=== PATIENT | female | born 1955 | race Caucasian/White ===

== ENCOUNTER → 2017-06-15 | Outpatient (CLI) | payer MEDICARE ==
[~2017-06-15] MED LIST: CATHETER FLUSH 10 ML SYR IV PRN; IOHEXOL 350 MG/ML 150 ML (OMNIPAQUE 350) VIAL IV ONE; NS 250 ML (IVPB) BAG IV ONE
[2017-06-15 11:01] LABS: BUN/CREATININE RATIO 16; CREATININE SERUM 0.85 MG/DL (0.60-1.30); GFR ESTIMATED > 60
--- NOTE | 2017-06-15 11:41 | Diagnostic Imaging Report ---
PROCEDURE: CT angiography of the chest with contrast. TECHNIQUE: Multiple contiguous axial images were obtained through the chest after uneventful bolus administration of intravenous contrast. Reconstructed CTA MIP acquisitions were also performed. INDICATION: Sleep apnea and obesity with family history of aneurysm. FINDINGS: There is good opacification of pulmonary arteries without intraluminal filling defect identified. Thoracic aorta has a normal appearance. There is no evidence of aneurysm, aortic stenosis or intimal abnormality. There is a normal three-vessel branching pattern arising from the aortic arch and the visualized renal arteries and superior mesenteric artery are unremarkable as is the celiac trunk. Lungs are clear, bilaterally. There is no significant pleural or pericardial fluid. IMPRESSION: Unremarkable CTA of the chest apart from mild thoracic spondylosis. Dictated by: Dictated on workstation # [id number]
== END ==
LOC: RAD 10:23
PROVIDERS: ATTEND Internal Medicine Cardiovascular Disease
DX: I67.1 Cerebral aneurysm, nonruptured (principal); M47.814 Spondylosis without myelopathy or radiculopathy, thoracic region; G47.30 Sleep apnea, unspecified; I10 Essential (primary) hypertension; E66.01 Morbid (severe) obesity due to excess calories; Z82.49 Family history of ischemic heart disease and other diseases of the circulatory system
CPT/HCPCS: 36415; 71275; 82565; 84520

== ENCOUNTER → 2018-06-17 | Outpatient (CLI) | payer MEDICARE ==
--- NOTE | 2018-06-17 14:28 | Diagnostic Imaging Report ---
INDICATION: Knee pain. Previous surgery. COMPARISON: None. FINDINGS: Three radiographic views of the right knee were obtained. Postsurgical changes of previous ORIF of the proximal tibia are identified, but only partially visualized on this exam. Orthopedic sideplate and screws are seen traversing the margin of the proximal tibia. Visualized portions of the hardware are intact. Visualized anchor screws appear well seated. Side plate is well opposed to the proximal tibia. No unexpected radiopaque foreign bodies are seen. There is chronic deformity of the proximal tibia consistent with well healed fracture. No acute fracture is identified on today's exam. There is mild ??bilateral subluxation of the tibia in respect to the femur. Otherwise, joint spaces are maintained. There may be small suprapatellar joint effusion. Lateral view suggests potential intra-articular loose bodies. IMPRESSION: 1. Probable intra-articular loose bodies. Correlation with CT or MRI is recommended. 2. Chronic appearing deformity of the proximal tibia consistent with old healed fracture. No evidence of acute fracture. 3. Postsurgical changes of proximal tibia. No unexpected radiopaque foreign bodies. Dictated by: Dictated on workstation # [id number]
--- NOTE | 2018-06-17 15:43 | Diagnostic Imaging Report ---
INDICATION: Previous surgery. Now with pain. COMPARISON: None. FINDINGS: Four radiographic views of the right tibia and fibula were obtained. Postsurgical changes of previous ORIF of the proximal tibia are identified. Orthopedic sideplate and screws are seen traversing the medial margins of the proximal tibia. Hardware is intact and appears well seated. No unexpected radiopaque foreign bodies are seen. There is chronic-appearing deformity of the proximal tibia consistent with probable old healed fracture. No acute fracture or dislocation of the right tibia or fibula is seen. Right ankle joint space is maintained. There is suggestion of intra-articular loose bodies within the anterior right knee joint space. IMPRESSION: 1. No acute fracture or dislocation of the right tibia or fibula. 2. Chronic deformity of the proximal tibia consistent with old healed fracture. 3. Postsurgical changes of previous ORIF of the proximal tibia. No evidence of hardware fracture or failure. 4. Probable loose bodies within the right knee joint. Dictated by: Dictated on workstation # [id number]
== END ==
LOC: RAD 13:07
PROVIDERS: ATTEND Nurse Practitioner Family
DX: M21.961 Unspecified acquired deformity of right lower leg (principal); M25.561 Pain in right knee; Z98.890 Other specified postprocedural states; Z87.81 Personal history of (healed) traumatic fracture
CPT/HCPCS: 73562; 73590

== ENCOUNTER → 2018-10-28 | Outpatient (CLI) | payer MEDICARE | LOC: RAD 14:31 | PROVIDERS: ATTEND Nurse Practitioner Family | DX: Z12.31 Encounter for screening mammogram for malignant neoplasm of breast (principal) | CPT/HCPCS: 77067 ==